=== PATIENT | male | born 2000 | race Caucasian/White ===

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

== ENCOUNTER 2018-03-13 07:11 | Emergency (ER) | payer BC ==
--- NOTE | 2018-03-13 07:18 | EDM.PDOC ---
ED HPI GENERAL MEDICAL PROBLEM - General Chief Complaint: Gastrointestinal Problem Stated Complaint: VOMITING AND ABD PAIN Time Seen by Provider: 03/13/18 07:30 Source of Information: Reports: Patient, Family (mother) History Limitations: Reports: No Limitations - History of Present Illness INITIAL COMMENTS - FREE TEXT/NARRATIVE: 17-year-old male presents to the ED with epigastric discomfort and pain. This preceded strong feelings of nausea and wanted to vomit but unable to do so until early this morning when he began vomiting. He's vomited twice of primary food and bilious material without blood. He did not give her much relief of the discomfort. His mother is concerned that he may have gallbladder disease. Patient denies any diarrhea. He is lightheaded dizzy and feels weak. Possibility of getting into some bad food does exist as eats out a good deal. Symptoms started 3 days ago. He did attend the walk-in clinic and was given Zofran sublingually which really did not help much. There was blood in the emesis. No previous abdominal surgeries. Pain does not radiate through to his back. Does not drink alcohol. No bowel movement for the last 2 days. Onset: Gradual Onset Date: 03/11/18 Duration: Hour(s): Location: Reports: Abdomen (Upper abdomen and epigastrium right upper quadrant.) Quality: Reports: Ache Severity: Moderate Improves with: Reports: None Worsens with: Reports: Eating Context: Denies: Activity, Exercise, Lifting, Sick Contact, Trauma, Other Associated Symptoms: Reports: Loss of Appetite, Malaise, Nausea/Vomiting, Weakness, Other (Twice overnight lightheaded and dizzy.). Denies: No Other Symptoms, Confusion, Chest Pain, Cough, cough w sputum, Diaphoresis, Fever/ Chills, Headaches, Rash, Seizure, Shortness of Breath, Syncope Treatments [employer]: Reports: Other (see below) (None.) Epigastric Pain Score (Numeric/FACES): 6 - Related Data Allergies Allergy/AdvReac Type Severity Reaction Status Date / Time egg Allergy Hives Verified 03/13/18 07:33 Home Meds: Home Meds Dicyclomine [Bentyl] 20 mg PO Q6H PRN #5 tablet 03/13/18 [Rx] Ondansetron [Zofran] 4 mg BUCCAL Q6H PRN #6 tab 03/13/18 [Rx] Past Medical History - Past Health History Medical/Surgical History: Denies Medical/Surgical History Respiratory History: Reports: Asthma Musculoskeletal History: Reports: Fracture Other Musculoskeletal History: right thumb fracture Dermatologic History: Reports: Eczema - Past Surgical History HEENT Surgical History: Reports: Myringotomy w Tube(s) Social & Family History - Caffeine Use Caffeine Use: Reports: Soda - Living Situation & Occupation Living situation: Reports: Single Occupation: Employed ED ROS GENERAL - Review of Systems Review Of Systems: See Below Constitutional: Reports: Chills, Malaise, Weakness, Fatigue, Decreased Appetite , Weight Loss. Denies: Fever HEENT: Reports: No Symptoms Respiratory: Reports: No Symptoms Cardiovascular: Reports: No Symptoms Endocrine: Reports: No Symptoms GI/Abdominal: Reports: Abdominal Pain (Epigastric pain right upper quadrant discomfort.), Nausea, Vomiting (See history of present illness) : Reports: No Symptoms Musculoskeletal: Reports: No Symptoms Skin: Reports: No Symptoms Neurological: Reports: No Symptoms Psychiatric: Reports: No Symptoms Hematologic/Lymphatic: Reports: No Symptoms Immunologic: Reports: No Symptoms ED EXAM, GI/ABD - Physical Exam Exam: See Below Exam Limited By: No Limitations General Appearance: Alert, WD/WN, No Apparent Distress, Other (He is mildly orthostatic) Eyes: Right: Eyelid Inflammation (Has eczematous dermatitis involving his upper eyelids worse on the right as compared to the left.), Bilateral: Normal Appearance (No jaundice.) Ears: Normal External Exam Throat/Mouth: Normal Inspection, Normal Lips, Other (Tongue is moist.) Head: Atraumatic, Normocephalic Neck: Normal Inspection, Supple, Non-Tender, Full Range of Motion. No: Lymphadenopathy (L), Lymphadenopathy (R) Respiratory/Chest: No Respiratory Distress, Lungs Clear, Normal Breath Sounds, No Accessory Muscle Use Cardiovascular: Normal Peripheral Pulses, Regular Rate, Rhythm, No Murmur, No Rub, Bradycardia (56/m lying.) GI/Abdominal Exam: Normal Bowel Sounds, Soft, No Organomegaly, No Abnormal Bruit , No Mass, Pelvis Stable, Tender (Moderately tender in midepigastrium with no rebound or), Other (Negative Goode sign.). No: Guarding, Rigid ( guarding.), Rebound (Male) Exam: No Hernia Back Exam: Normal Inspection, Full Range of Motion. No: CVA Tenderness (L), CVA Tenderness (R) Extremities: Normal Inspection, Normal Range of Motion, Non-Tender, No Pedal Edema, Normal Capillary Refill Neurological: Alert, Oriented, CN II-XII Intact, Normal Cognition Psychiatric: Flat Affect Skin Exam: Warm, Dry, Intact, Normal Color, No Rash Course - Vital Signs Last Recorded V/S: Last Vital Signs Temp 36.9 C 03/13/18 07:20 Pulse 70 03/13/18 08:25 Resp 14 03/13/18 08:25 BP 125/67 03/13/18 08:25 Pulse Ox 97 03/13/18 08:25 Orthostatic Blood Pressure [ 111/67 Standing] Orthostatic Blood Pressure [ 127/68 Sitting] Orthostatic Blood Pressure [ 125/71 Supine] - Orders/Labs/Meds Orders: Active Orders 24 hr Category Date Time Status Abdomen 1V Flat [CR] Stat Exams 03/13/18 07:38 Taken URINALYSIS W/MICROSCOPIC [UA W/MICROSCOPIC] [URIN] Stat Lab 03/13/18 07:38 Ordered Dextrose 5%-0.9% NaCl [Dextrose 5%-Normal Saline] 1,000 Med 03/13/18 07:45 Active ml IV ASDIRECTED Medication Orders Dextrose/Sodium Chloride (Dextrose 5%-Normal Saline) 1,000 mls @ 999 mls/hr IV ASDIRECTED SEAN Last Admin: 03/13/18 07:43 Dose: 999 mls/hr Labs: Laboratory Tests 03/13/18 03/13/18 03/13/18 Range/Units 07:50 07:50 07:50 WBC 7.87 (4.23-9.07) K/mm3 RBC 5.69 (4.63-6.08) M/mm3 Hgb 16.2 (13.7-17.5) gm/L Hct 49.0 (40.1-51.0) % MCV 86.1 (79.0-92.2) fl MCH 28.5 (25.7-32.2) pg MCHC 33.1 (32.2-35.5) g/dl RDW Std Deviation 41.9 (35.1-43.9) fL Plt Count 244 (163-337) K/mm3 MPV 10.7 (9.4-12.3) fl Neutrophils % (Manual) 72 H (40-60) % Band Neutrophils % 0 (0-10) % Lymphocytes % (Manual) 21 (20-40) % Atypical Lymphs % 0 % Monocytes % (Manual) 6 (2-10) % Eosinophils % (Manual) 1 (0.8-7.0) % Basophils % (Manual) 0 L (0.2-1.2) Platelet Estimate Adequate RBC Morph Comment Normal Sodium 141 (136-145) mEq/L Potassium 4.2 (3.5-5.1) mEq/L Chloride 103 (98-107) mEq/L Carbon Dioxide 31 (21-32) mEq/L Anion Gap 11.2 (5-15) BUN 13 (7-18) mg/dL Creatinine 1.0 (0.7-1.3) mg/dL Est Cr Clr Drug Dosing 118.15 mL/min Estimated GFR (MDRD) > 60 (>60) mL/min BUN/Creatinine Ratio 13.0 L (14-18) Glucose 108 H (74-106) mg/dL Calcium 9.5 (8.5-10.1) mg/dL Total Bilirubin 1.5 H (0.2-1.0) mg/dL AST 13 L (15-37) U/L ALT 22 (16-63) U/L Alkaline Phosphatase 55 (46-116) U/L C-Reactive Protein < 0.2 (<1.0) mg/dL Total Protein 7.8 (6.4-8.2) g/dl Albumin 4.2 (3.4-5.0) g/dl Globulin 3.6 gm/dL Albumin/Globulin Ratio 1.2 (1-2) Lipase 66 L (73-393) U/L H. pylori IgG Antibody Negative (NEGATIVE) Meds: Medications Generic Name Dose Route Start Last Admin Trade Name Freq PRN Reason Stop Dose Admin Dextrose/Sodium Chloride 1,000 mls @ 999 mls/hr 03/13/18 07:45 03/13/18 07:43 Dextrose 5%-Normal Saline IV 999 mls/hr ASDIRECTED SEAN Administration Discontinued Medications Generic Name Dose Route Start Last Admin Trade Name Freq PRN Reason Stop Dose Admin Ketorolac Tromethamine 30 mg 03/13/18 07:37 03/13/18 07:42 Toradol IVPUSH 03/13/18 07:38 30 mg ONETIME ONE Administration Magnesium Citrate 210 ml 03/13/18 08:35 03/13/18 08:37 Citrate Of Magnesia PO 03/13/18 08:36 210 ml ONETIME ONE Administration Magnesium Citrate Confirm 03/13/18 08:35 Citrate Of Magnesia Administered 03/13/18 08:36 Dose 296 ml .ROUTE .STK-MED ONE Metoclopramide HCl 10 mg 03/13/18 07:37 03/13/18 07:43 Reglan IVPUSH 03/13/18 07:38 10 mg ONETIME ONE Administration - Radiology Interpretation Free Text/Narrative:: 17-year-old male presents the ED with flulike symptoms starting over 2 days ago. He began having nausea and vomiting last night and vomited twice overnight to bilious material mixed with food. States it hurts in the pelvis stomach particular to swallow. I odynophagia but at the lower part of the esophagus. Food is not getting hung up her stomach. Denies any hematemesis. Denies any recent severe vomiting that would suggest a Rekha Wiess tear etc. Mother is concerned this may be gallbladder related. This would be very unusual in young man. Emanation shows tenderness in the epigastrium without in positive Goode's sign. Scaphoid abdomen which is otherwise benign. Bowel sounds are present but are slightly decreased from the norm. He is mildly orthostatic. Plan IV D5 normal saline at open. Given Reglan 10 mg IV and Toradol 30 mg IV. Routine labs including a serum lipase and H. pylori to be done. I will do a bedside ultrasound on his gallbladder. - Re-Assessments/Exams Free Text/Narrative Re-Assessment/Exam: 03/13/18 07:56 Bedside ultrasound reveals a normal-appearing gallbladder without any stones or wall thickening. Patient started vomiting however when I started compressing with the probe in his epigastrium. 03/13/18 08:20 White count is 7.87 with 72% neutrophils and no band cells reported. Hemoglobin is 16.2 with hematocrit of 49.0 suggesting some degree of hemoconcentration. Platelet count is 244,000. Sodium is 141 with potassium 4.2. Chloride 103 with a bicarbonate 31. Anion gap is 11.2. BUN is 13. Creatinine is 1.0. GFR greater than 60. Glucose 108. Calcium 9.5. Total bilirubin is 1.5. AST is 13 with an ALT of 22 and alk phosphatase normal at 55. C-reactive protein is less than 0.2. Total protein is 7.8. Albumin fraction mildly elevated at 4.2. Lipase is normal at 66. 03/13/18 08:29 KUB reveals increased stool throughout the colon but particularly the splenic flexure and descending colon have a large stool plug within. This is likely the cause of his persistent abdominal pain. Debi in light of normal labs. 03/13/18 08:42 has completed a liter of IV fluids. Is feeling improved. He'll be discharged home. He was given the 7 ounces of Citroma with 5 ounces of juice per ora in the ED. This should provide bowel cleanse over the next 2-3 hours. Zofran 4 mg may be used sublingually every 6 hours when necessary for nausea or vomiting. Bentyl 20 mg every 6 hours needed for relief of abdominal pain. Departure - Departure Time of Disposition: 08:46 Disposition: Home, Self-Care 01 Condition: Fair Clinical Impression: Viral gastroenteritis, Constipation by delayed colonic transit Abdominal pain Qualifiers: Abdominal location: epigastric Qualified Code(s): R10.13 - Epigastric pain - Discharge Information *PRESCRIPTION DRUG MONITORING PROGRAM REVIEWED*: Not Applicable *COPY OF PRESCRIPTION DRUG MONITORING REPORT IN PATIENT MARIELENA: Not Applicable Prescriptions: Dicyclomine [Bentyl] 20 mg PO Q6H PRN #5 tablet PRN Reason: Abdominal cramps/diarrhea Ondansetron [Zofran] 4 mg BUCCAL Q6H PRN #6 tab PRN Reason: nausea or vomiting Instructions: Viral Gastroenteritis, Adult, Abdominal Pain, Adult, Constipation , Adult Referrals: PCP,None [Primary Care Provider] - Forms: ED Department Discharge, ED Return to Work/School Form Additional Instructions: Evaluation the emergency room today in regards to persistent epigastric upper abdominal pain with associated development of nausea and vomiting overnight. No associated fever but perhaps a mild chills. Symptoms started 2 days ago. Examination reveals tenderness in the epigastrium of the abdomen. You're given medications Reglan 10 mg with Toradol 30 mg IV to relieve pain and nausea. He also received a liter of fluids to rehydrate you. All of the lab work proved to be normal. This included pancreas liver kidneys with no other evidence of bacterial infection. X-ray of the abdomen shows a large amount of stool in the left upper quadrant of the abdomen compatible with a stool plug causing constipation. I suspect this is the source of your pain. Treatment is magnesium citrate 7 ounces by mouth mixed with 5 ounces of juice of choice taken once. This usually will take 1-2 hours to start to work and will make the bowels move 3 or 4 times cleaning out the stool plug. I did write a prescription for Zofran 4 mg to be taken under the tongue every 4-6 hours needed for nausea relief as well. I suspect you have a component of viral gastroenteritis which means inflammation of the stomach. The tablet is Bentyl 20 mg which can be taken every 6 hours as needed for relief of abdominal pain. Suggest clear fluid diet such as Gatorade/Powerade. When hungry made try soda crackers first then advance to toast. If this is tolerated then advance to chicken noodle soup or turkey rice etc. If this is tolerated you can pretty will start a normal diet although low acid would be advised. Return to medical care if not markedly improved in 24-36 hours time - My Orders Last 24 Hours: My Active Orders 03/13/18 07:38 Abdomen 1V Flat [CR] Stat URINALYSIS W/MICROSCOPIC [UA W/MICROSCOPIC] [URIN] Stat 03/13/18 07:45 Dextrose 5%-0.9% NaCl [Dextrose 5%-Normal Saline] 1,000 ml IV ASDIRECTED - Assessment/Plan Last 24 Hours: My Active Orders 03/13/18 07:38 Abdomen 1V Flat [CR] Stat URINALYSIS W/MICROSCOPIC [UA W/MICROSCOPIC] [URIN] Stat 03/13/18 07:45 Dextrose 5%-0.9% NaCl [Dextrose 5%-Normal Saline] 1,000 ml IV ASDIRECTED
[2018-03-13] MEDS ORDERED: Metoclopramide 10 MG/2 ML SDV IVPUSH ONE (07:37)
[2018-03-13] MEDS ORDERED: Ketorolac 30 MG/ML SDV IVPUSH ONE (07:37)
[2018-03-13] MEDS ORDERED: Dextrose 5%-0.9% NaCl 1,000 ML IV SCH (07:45)
[2018-03-13] MEDS ORDERED: Magnesium Citrate Solution 296 ML Bottle PO ONE (08:35)
[2018-03-13] MEDS ORDERED: Magnesium Citrate Solution 296 ML Bottle ONE (08:35)
[2018-03-13 08:47] VITALS: BP 122/60
--- NOTE | 2018-03-15 06:57 | CR ---
Abdomen: Supine view of the abdomen was obtained. Comparison: No previous study. Mild increased stool is noted within the right and transverse colon. Bowel gas pattern is otherwise unremarkable. No abnormal calcifications or soft tissue abnormality is seen. Bony structures are unremarkable. Impression: 1. Slight increased stool. Supine abdominal x-ray is otherwise unremarkable. Diagnostic code #2
== END 2018-03-13 08:55 | disposition home or self-care (01) ==
LOC: JD.ED 07:11
DX: A08.4 Viral intestinal infection, unspecified (principal); K59.01 Slow transit constipation; Z91.012 Allergy to eggs
CPT/HCPCS: 36415; 74018; 80053; 83690; 85007; 85027; 86140; 86677; 96361; 96374; 96375; 99284; A9270; J1885; J2765; J7042